=== PATIENT | male | born 1990 | race Caucasian/White ===

== ENCOUNTER 2021-09-03 08:13 | Emergency (ER) | payer BC, SELFPAY ==
--- NOTE | ~2021-09-03 | XR_ITS ---
EXAMINATION: XR chest 1V portable DATE: 09/03/2021 09:09 INDICATION: Palpitations. TECHNIQUE: A single frontal view of the chest was obtained. COMPARISON: None. FINDINGS: The chest demonstrates clear lungs without pneumonia, pleural effusion, or pneumothorax. Th e heart size is normal. IMPRESSION: 1. No acute cardiopulmonary disease. Reviewed, dictated and finalized at location B.
[2021-09-03 08:18] VITALS: BP 133/85; PULSE 80; RESP 16; TEMP 36.7; O2SAT 98
--- NOTE | 2021-09-03 09:01 | ECG_ITS ---
Measurements Intervals [place] Rate: 76 P: 33 ND: 150 QRS: -9 QRSD: 105 T: -19 QT: 343 QTc: 388 Interpretive Statements SINUS RHYTHM MINIMAL VOLTAGE CRITERIA FOR LVH, CONSIDER NORMAL VARIANT [MEETS CRITERIA IN ONE OF: R(aVL), S(V1), R(V5), R(V5/V6)+S(V1)] ST DEVIATION AND MODERATE T-WAVE ABNORMALITY, CONSIDER ANTERIOR ISCHEMIA [-0.1+ mV T WAVE IN V3/V4] ABNORMAL ECG NO PREVIOUS ECG AVAILABLE FOR COMPARISON Electronically Signed On 09-03-2021 17:58:52 CDT by Cody Seymour M.D.
--- NOTE | 2021-09-03 09:02 | ED.ANXIETY ---
HPI - Anxiety General Chief Complaint: Anxiety Stated Complaint: anxiety Time Seen by Provider: 09/03/21 09:00 Source: patient and family Mode of arrival: ambulatory Limitations: no limitations History of Present Illness HPI narrative: Patient is 31 years old white male came to the emergency room complaining of racing heart rate, racing mind over the last few months, got worse over the last 2 days. Patient also complaining of trouble sleeping for years. Every time he goes sleep, start thinking about his daily activity and make him unable to sleep. Patient denies any suicidal or homicidal ideation. Patient denies any obvious stress, fever, chills, nausea, vomiting, shortness of breath or chest pain. Patient does not smoke, drinks occasionally, denies any drug use. Patient is healthy otherwise, does not take medicine at home. Related Data Allergies Allergy/AdvReac Type Severity Reaction Status Date / Time adhesive tape AdvReac Hives Verified 09/03/21 08:22 Review of Systems Review of Systems: CONSTITUTIONAL: Denies fever, chills, or sweats. EYES: Denies visual changes, redness, or discharge. ENT: Denies rhinorrhea, congestion, sore throat, or otalgia. CARDIOVASCULAR: Denies chest pain, palpitations, or edema. RESPIRATORY: Denies cough or dyspnea. GASTROINTESTINAL: Denies abdominal pain, nausea, vomiting, or diarrhea. GENITOURINARY: Denies dysuria or hematuria. SKIN: Denies rash or itching. MUSCULOSKELETAL: Denies back pain, joint pain, or myalgia. NEUROLOGIC: Denies headache, numbness, or weakness. PSYCHIATRIC: Denies anxiety or depression. PMFSH Family History Family History Father Family history of malignant neoplasm Mother Family history of diabetes mellitus in first degree relative Social History Social History Smoking status: Never smoker Alcohol intake: current Exam Narrative: General appearance: Well-developed, well-nourished, restless, anxious Skin: Normal color Head: Normocephalic, nontraumatic Eyes: Clear conjunctiva ENT: Oropharynx normal, ears normal, nose normal Neck: Supple, nontender Chest and respiratory: Airway patent, no respiratory distress, no accessory muscle use Heart: Regular rate/rhythm Abdomen: Soft, nontender, no organomegaly, quiet bowel sounds Vascular: Normal peripheral pulses, normal capillary refill. Musculoskeletal: Normal range of motion, nontender back Neurologic: Alert and oriented ?3, CONSTRUCTION RECRUITER is normal as tested, no gross motor deficit Course Course Emergency Course: Anxiety-like symptoms is my concern. Reevaluation(s) Reevaluation #1: Patient feeling much better after 1 mg of Ativan orally. Date: 09/03/21 Time: 09:34 Vital Signs Vital signs: Vital Signs Temperature 36.7 C 09/03/21 08:18 Pulse Rate 80 09/03/21 08:18 Respiratory Rate 16 09/03/21 08:18 Blood Pressure 133/85 09/03/21 08:18 Pulse Oximetry 98 09/03/21 08:18 Temperature 36.7 C 09/03/21 08:18 Pulse Rate 84 09/03/21 10:29 Respiratory Rate 16 09/03/21 10:29 Blood Pressure 140/84 09/03/21 10:29 Pulse Oximetry 99 09/03/21 10:29 MDM - Anxiety Lab Data Result diagrams: 09/03/21 09:19 09/03/21 09:19 Labs: Lab Results 09/03/21 09/03/21 09/03/21 Range/Units 09:19 09:19 09:19 WBC 6.4 (4.5-10.0) K/mm3 RBC 5.21 (4.6-6.20) M/mm3 Hgb 15.7 (14.0-18.0) g/dL Hct 46.5 (42.0-52.0) % MCV 89.3 (80-100) fl MCH 30.1 (26-34) pg MCHC 33.8 (32-36) g/dl RDW 12.3 (11.5-14.5) % Plt Count 239 (150-375) k/mm3 MPV 11.1 H (7.4-10.4
[2021-09-03] MEDS: LORazepam (*CRX) 0.5 MG TABLET 1 MG PO (09:14)
[2021-09-03 09:31] LABS: Basophils Absolute Auto 0.1 K/mm3 (0.0-0.1); Basophils Percent Auto 0.9 % (0.2-1.2); Eosinophils Percent Auto 0.3 % (0-4.4); Hematocrit 46.5 % (42.0-52.0); Hemoglobin 15.7 g/dL (14.0-18.0); Immature Granulocyte Absolute 0.02 K/mm3 (0.00-0.031); Immature Granulocyte Percent A 0.3 % (0-0.5); Lymphocytes Absolute Auto 1.63 K/mm3 (0.9-3.2); Lymphocytes Percent Auto 25.3 % (18.3-44.2); Mean Corpuscular HGB Conc 33.8 g/dl (32-36); Mean Corpuscular Hemoglobin 30.1 pg (26-34); Mean Corpuscular Volume 89.3 fl (80-100); Mean Platelet Volume 11.1 fl (7.4-10.4); Monocytes Absolute Auto 0.6 K/mm3 (0.1-0.6); Monocytes Percent Auto 8.7 % (2.6-8.5); Neutrophils Absolute Auto 4.1 K/mm3 (1.3-6.7); Neutrophils Percent Auto 64.5 % (45.5-73.1); Platelet Count Result 239 k/mm3 (150-375); Red Blood Count 5.21 M/mm3 (4.6-6.20); Red Cell Distribution Width 12.3 % (11.5-14.5); White Blood Count 6.4 K/mm3 (4.5-10.0)
[2021-09-03 09:44] LABS: Alanine Aminotransferase 68 U/L (4-50); Albumin Level 4.5 g/dL (3.5-5.1); Alkaline Phosphatase 57 U/L (38-126); Anion Gap 10 mmol/L (8-16); Aspartate Amino Transferase 42 U/L (17-59); Bilirubin,Total 0.7 mg/dL (0.2-1.3); Blood Urea Nitrogen 12 mg/dL (9-20); Calcium 9.1 mg/dL (8.4-10.2); Carbon Dioxide 23 mmol/L (22-30); Chloride 105 mmol/L (98-107); Estimated CRCL calculation 181 ml/min; Estimated Glomerular Filt Rate > 60; Glucose 104 mg/dL (65-110); Potassium 3.9 mmol/L (3.4-5.0); Sodium 138 mmol/L (137-145)
[2021-09-03 09:53] LABS: Troponin I < 0.012 ng/mL (0.000-0.034)
[2021-09-03 10:29] VITALS: BP 140/84; PULSE 84; RESP 16; O2SAT 99
[2021-09-03 11:20] VITALS: BP 132/74; PULSE 84; RESP 16; O2SAT 98
== END 2021-09-03 11:53 | disposition home or self-care (01) ==
PROVIDERS: Emergency Provider Emergency Medicine; PCP Hospitalist
DX: F41.0 Panic disorder [episodic paroxysmal anxiety] (principal); F51.02 Adjustment insomnia; R94.31 Abnormal electrocardiogram [ECG] [EKG]
CPT/HCPCS: 36415; 71045; 80053; 84443; 84484; 85025; 93005; 99284; A9270

== ENCOUNTER 2022-09-01 08:11 | Outpatient (CLI) | payer BC, SELFPAY ==
--- NOTE | 2022-09-17 11:16 | WPDSLEEPSTUD ---
Sleep Study Date of Study: 09/01/22 Ordering Provider: Sera Albrecht, CASH SHORTAGE INVESTIGATOR- Interpreting Physician: Gita Velez MD Sleep Study Type: CPAP Titration Height: 1.91 m Weight: 122.47 kg Body Mass Index: 33.7 Neck Circumference (inches): 16.5 [place]: 1 Reason for Sleep Study Difficulty falling asleep and staying asleep, decreased oxygen level during hospitalization for neck surgery * 06/25/2022 basic nocturnal polysomnogram at [facility] showing apnea-hypopnea index 21, higher during supine sleep 34, sleep efficiency 92% minimum desaturation 87%; he had limited supine sleep on this study indicating that the AHI may have underestimated the degree of sleep disordered breathing. Sleep History Juan Beckford is a 32-year-old male who has a history of difficulty getting to sleep and staying asleep. During a hospital admission for neck surgery, he had low oxygen levels at night improved with supplemental oxygen. he was thought to have a Chiari malformation however after is neck procedure neurosurgery, decided he did not have this condition. He has been prescribed sleep aids a few times to help him get to sleep. This is been going on longer than 2 years. He has problems waking up throughout the night and he has excessive daytime sleepiness. He occasionally awakens from sleep feeling short of breath. He never awakens at night with heartburn, belching or coughing. He occasionally snores and occasionally is loud enough that others complain about it. He always has difficulty sleeping if he has a cold. He occasionally wakes up gasping for breath at night, occasionally has breathing problems at night observed by others, occasionally sweats excessively at night and occasionally notices his heart pounding or beating irregularly at night. He does not fall asleep during the day, does not fall asleep involuntarily or while driving. He does not have loss of muscle tone with strong emotion. He occasionally has daytime difficulties due to excessive sleepiness. He does not feel paralyzed on waking or falling asleep. He occasionally has vivid dreamlike scenes upon awakening or falling asleep. He occasionally feels afraid to go to sleep. He occasionally has nightmares. He occasionally remembers his dreams. He always has racing thoughts. He occasionally feels sad, depressed, or anxious. He always has muscular tension. He occasionally notices parts of his body jerking. He occasionally kicks at night. He does not have crawling and aching feelings in his legs or any kind of leg pain during the night. He does not have morning jaw pain or grind his teeth during sleep. He occasionally is bothered by pain during the day. He rarely is awakened by pain at night he occasionally wakes up feeling stiff in the morning with sore achy muscles and pain in the neck and spine. He has headaches, panic, fatigue and insomnia. Normal bedtime is between 9:00 p.m. and 10:00 p.m., taking 1-2 hours to fall asleep, waking up anywhere between 1 and 4 times during the night to urinate, get a snack and return to sleep. Sometimes he is able to return to sleep within 15 minutes and at other times it may take an hour to return to sleep. His normal wake time is 6:30 a.m.. On weekends bedtime is between 10:00 p.m. and 12 midnight and he wakes at 7:00 a.m.. He estimates getting 5-7 hours of sleep at night. He does not generally take naps in the afternoon or evening. He often feels refreshed after a short 10 or 15 minute nap. He is drowsy for 2 hours after waking. He feels better in the afternoon compared to other times of day. He reports a 20 lb weight gain in the last year. Habits: Never smoked. Caffeine 2 or more servings a day. Alcohol socially, not regularly. No recreational substances. [facility] Past Medical History Medical History (Updated 09/17/22 @ 11:44 by Gita Velez MD) Anxiety Chronic sinusitis Obstructive sleep apnea Primary inso
[2022-09-17 11:47] VITALS: BMI 33.7
--- NOTE | 2023-05-26 13:13 | SLEEP ---
pt stopped usage of machine
== END 2022-09-02 06:13 | disposition home or self-care (01) ==
LOC: ANHCSM 08:12
PROVIDERS: PCP Hospitalist; Visit Provider Nurse Practitioner Family
DX: G47.33 Obstructive sleep apnea (adult) (pediatric) (principal)
CPT/HCPCS: 95811

== ENCOUNTER 2024-02-18 12:52 | Outpatient (CLI) | payer BC, SELFPAY ==
--- NOTE | 2024-03-09 18:41 | WPDSLEEPSTUD ---
Sleep Study Date of Study: 02/18/24 Ordering Provider: Gita Velez MD Interpreting Physician: Gita Velez MD Sleep Study Type: Split Polysomnogram Height: 1.91 m Weight: 129.274 kg Body Mass Index: 35.6 Neck Circumference (inches): 17 [place]: 12 Reason for Sleep Study Known obstructive sleep apnea, not thriving on CPAP 17 cm, now here for split night study. * 06/25/2022 basic nocturnal polysomnogram at [facility] showing apnea-hypopnea index 21, higher during supine sleep 34, sleep efficiency 92% minimum desaturation 87%; he had limited supine sleep on this study indicating that the AHI may have underestimated the degree of sleep disordered breathing. * 09/01/2022, CPAP titration with an optimal pressure of CPAP 17 cm. Sleep History Juan Beckford is a 34-year-old male with known obstructive sleep apnea, tested in August 2022, has not been able to tolerate CPAP 17 cm. He has difficulty getting to sleep and staying asleep. During a hospital admission for neck surgery, he had low oxygen levels at night improved with supplemental oxygen. He was thought to have a Chiari malformation however after is neck procedure, neurosurgery decided he did not have this condition. He has been prescribed sleep aids a few times to help him get to sleep. His problems with sleep have been present several years. He has problems waking up throughout the night and he has excessive daytime sleepiness. He occasionally awakens from sleep feeling short of breath. He never awakens at night with heartburn, belching or coughing however since using CPAP 17 cm, he has had belching the day after using CPAP. He occasionally snores and occasionally is loud enough that others complain about it. He always has difficulty sleeping if he has a cold. He occasionally wakes up gasping for breath at night, occasionally has breathing problems at night observed by others, occasionally sweats excessively at night and occasionally notices his heart pounding or beating irregularly at night. He does not fall asleep during the day, does not fall asleep involuntarily or while driving. He does not have loss of muscle tone with strong emotion. He occasionally has daytime difficulties due to excessive sleepiness. He does not feel paralyzed on waking or falling asleep. He occasionally has vivid dreamlike scenes upon awakening or falling asleep. He occasionally feels afraid to go to sleep. He occasionally has nightmares. He occasionally remembers his dreams. He always has racing thoughts. He occasionally feels sad, depressed, or anxious. He always has muscular tension. He occasionally notices parts of his body jerking. He occasionally kicks at night. He does not have crawling and aching feelings in his legs or any kind of leg pain during the night. He does not have morning jaw pain or grind his teeth during sleep. He occasionally is bothered by pain during the day. He rarely is awakened by pain at night he occasionally wakes up feeling stiff in the morning with sore achy muscles and pain in the neck and spine. He has headaches, panic, fatigue and insomnia. Normal bedtime is between 9:00 p.m. and 10:00 p.m., taking 1-2 hours to fall asleep, waking up anywhere between 1 and 4 times during the night to urinate, get a snack and return to sleep. Sometimes he is able to return to sleep within 15 minutes and at other times it may take an hour to return to sleep. His normal wake time is 6:30 a.m.. On weekends bedtime is between 10:00 p.m. and 12 midnight and he wakes at 7:00 a.m.. He estimates getting 5-7 hours of sleep at night. He does not generally take naps in the afternoon or evening. He often feels refreshed after a short 10 or 15 minute nap. He is drowsy for 2 hours after waking. He feels better in the afternoon compared to other times of day. He reports a 20 lb weight gain in the last year. Habits: Never smoked. Caffeine 2 or more servings a day.
[2024-03-09 18:46] VITALS: BMI 35.6
== END 2024-02-19 07:28 | disposition home or self-care (01) ==
LOC: ANHCSM 12:54
PROVIDERS: PCP Nurse Practitioner Family; Visit Provider Internal Medicine Critical Care Medicine
DX: G47.33 Obstructive sleep apnea (adult) (pediatric) (principal); Z68.35 Body mass index [BMI] 35.0-35.9, adult
CPT/HCPCS: 95811

== ENCOUNTER 2024-04-18 11:50 | Emergency (ER) | payer BC, SELFPAY ==
[2024-04-18 11:55] VITALS: BP 152/84; PULSE 84; RESP 16; TEMP 36.9; O2SAT 99
--- NOTE | 2024-04-18 12:43 | ED.GENADULT ---
HPI - General Adult General Chief complaint: Ear Stated complaint: can't hear out of left ear Time Seen by Provider: 04/18/24 11:52 Source: patient Mode of arrival: ambulatory Limitations: no limitations History of Present Illness HPI narrative: Pt presents for evaluation of left sided tinnitus and muffled hearing. Symptom onset yesterday after he had an x ray of his head. He indicates approximately 2 years ago he had an incidental finding of a schwannoma when he went in for an MRI of his C-spine. Neuro surgery took him to the operating room and essentially did not remove the tumor as it was on his facial nerve. Neurosurgery was concerned that excision of the mass could result in facial paralysis, as it was sitting on is facial nerve. He subsequently had a GROUNDS WORKER shunt placed. He has had serial MRIs to monitor the size of the tumor. On a previous MRI, there was concern that there may be a metal fragment in his skull from his previous surgery. Prior to having a repeat MRI of his brain, it was recommended that he have an x-ray to ensure that he did not have a retained metallic fragment. States his symptoms of tinnitus and hearing loss started fairly abruptly yesterday. He denies any fever, chills, sinus congestion, drainage, otalgia, drainage from the ear or respiratory symptoms. He does not smoke or vape. He contacted his neurosurgeon's office and was advised to go to an urgent care to ensure he did not have a cerumen impaction. He has a telemedicine appointment with Neurosurgery today at 2:25 p.m. Related Data Allergies Allergy/AdvReac Type Severity Reaction Status Date / Time adhesive tape AdvReac Hives Verified 04/18/24 12:06 Review of Systems Review of Systems: CONSTITUTIONAL: Denies fever, chills, or sweats. EYES: Denies visual changes, redness, or discharge. ENT: Reports left-sided tinnitus and hearing loss. Denies drainage from the ear. Denies rhinorrhea, congestion, sore throat, or otalgia. CARDIOVASCULAR: Denies chest pain, palpitations, or edema. RESPIRATORY: Denies cough or dyspnea. GASTROINTESTINAL: Denies abdominal pain, nausea, vomiting, or diarrhea. GENITOURINARY: Denies dysuria or hematuria. SKIN: Denies rash or itching. MUSCULOSKELETAL: Denies back pain, joint pain, or myalgia. NEUROLOGIC: Denies headache, numbness, dizziness, or weakness. PSYCHIATRIC: Denies anxiety or depression. [facility] Past Medical History Medical History Anxiety Chronic hiccups Chronic sinusitis Migraine Neck pain Nocturia Obese Obstructive sleep apnea Primary insomnia Schwannoma Surgical History Surgical History History of appendectomy History of neck surgery 05/26/2022 Family History Family History Father Family history of malignant neoplasm Mother Family history of diabetes mellitus in first degree relative Grandparent Diabetes mellitus Social History Social History Social History: Pt is very confident in filling out medical forms. Pt has not received assistance in the last 12 months. Smoking packs per day: 0 Smoking cigarettes per day: 0.0 Years smoked: 0 Smoking pack-years: 0.00 Smoking status: Never smoker Alcohol intake: current Drinks per week: 3 Alcohol use details: socially Substance use: never Substance use type: does not use Do You Feel Safe in your Home?: Yes Lack of Transportation: No Lack of Food: Never True Current Housing: I Have Housing Concerned About Future Housing: No Difficulty Paying Gas/Electric Bills: No Difficulty Paying for Meds: No Currently Unemployed: No Education: High School Diploma/GED Difficulty w/ Childcare or Family Care: No Living arrangements: with family Occupation/Education: occupation Gender identity (if verbalized by the patient): Male Sexual Orientation (if Verbalized by the Patient): Straight or Heterosexual Agree to blood products: Yes Exam Narrative: GENERAL: Well-appearing, well-nourished, and in no acute distress. HEAD: Normocephalic, atraumatic. EYES: PERRLA and EOMI. ENT: Nares clear, no rhinorrhea or epistaxis. Mucous membranes moist. Oropharynx without tonsillar hypertrophy exudate or other lesions. There is bilateral middle ear fluid. Left TM is slightly bulging and erythematous NECK: Supple. No adenopathy or masses. No carotid bruits or JVD CHEST: Clear to auscultation. No respiratory distress. No wheezes rales or rhonchi HEART: Regular rate and rhythm. No murmur heard. Normal peripheral pulses. ABDOMEN: Soft, nontender, nondistended, normal active bowel sounds. EXTREMITIES: Normal range of motion. No edema. SKIN: Warm, dry, no rash. NEURO: No focal deficits. Alert and oriented x3. PSYCH: Normal mood and affect. Course Course Emergency Course: This is a 34-year-old male who presented for evaluation of hearing loss and tinnitus in the left ear. Does have some middle ear fluid in left TM is slightly bulging. Will treat with Augmentin. I do think that further investigation by Neurosurgery would be beneficial as I am not sure that middle ear fluid would cause abrupt onset hearing loss. He has an appointment with them today, which he was advised to keep. May be beneficial for him to have an in person physical exam by Neurosurgery. I recommended that he speak with them about that during his appointment today. In the event that he has worsening symptoms he should go to the emergency department. Patient in agreement with plan of care. Level of Care: Express Care Visit Vital Signs Vital signs: Vital Signs Temperature 36.9 C 04/18/24 11:55 Pulse Rate 84 04/18/24 11:55 Respiratory Rate 16 04/18/24 11:55 Blood Pressure 152/84 H 04/18/24 11:55 Pulse Oximetry 99 04/18/24 11:55 Oxygen Delivery Room Air 04/18/24 11:55 Temperature 36.9 C 04/18/24 11:55 Pulse Rate 84 04/18/24 11:55 Respiratory Rate 16 04/18/24 11:55 Blood Pressure 152/84 H 04/18/24 11:55 Pulse Oximetry 99 04/18/24 11:55 Oxygen Delivery Room Air 04/18/24 11:55 Medical Decision Making Vital Signs Vital Signs: Vital Signs Temperature 36.9 C 04/18/24 11:55 Pulse Rate 84 04/18/24 11:55 Respiratory Rate 16 04/18/24 11:55 Blood Pressure 152/84 H 04/18/24 11:55 Pulse Oximetry 99 04/18/24 11:55 Oxygen Delivery Room Air 04/18/24 11:55 Temperature 36.9 C 04/18/24 11:55 Pulse Rate 84 04/18/24 11:55 Respiratory Rate 16 04/18/24 11:55 Blood Pressure 152/84 H 04/18/24 11:55 Pulse Oximetry 99 04/18/24 11:55 Oxygen Delivery Room Air 04/18/24 11:55 Discharge Plan Discharge Clinical Impression: Hearing loss, Tinnitus, Fluid collection of middle ear Patient Disposition: Home, Self-Care Condition: Stable Instructions: Antibiotic Form, Hearing Loss (ED), Tinnitus (ED) Additional Instructions: ASK YOUR NEUROSURGERY TEAM TODAY WHETHER SUDAFED AND FLONASE MAY HELP I RECOMMEND YOU KEEP APPOINTMENT WITH NEUROSURGERY TODAY AND TO DISCUSS WHETHER AN IN-OFFICE APPOINTMENT IS RECOMMENDED Patient Language: Portuguese Prescriptions: New amoxicillin-pot clavulanate 875-125 mg tablet 1 tablet PO Q12H Qty: 20 0RF No Action doxepin 25 mg capsule 25 mg PO QHS 30 Days Qty: 30 5RF hydroxyzine HCl 25 mg tablet 25 mg PO DAILY PRN (Reason: anxiety/insomnia) Qty: 90 1RF pantoprazole 40 mg tablet,delayed release (DR/EC) 40 mg PO QAM 30 Days Qty: 90 1RF Rx Instructions: Take one tablet by mouth every morning 30 minutes before first meal doxepin 10 mg capsule 10 mg PO QHS Qty: 30 0RF Follow-up/Referrals: Sera Albrecht APRN [Primary Care Provider] - Time of Disposition: 12:40
== END 2024-04-18 12:46 | disposition home or self-care (01) ==
PROVIDERS: Emergency Provider Nurse Practitioner; PCP Nurse Practitioner Family
DX: H91.92 Unspecified hearing loss, left ear (principal); H93.12 Tinnitus, left ear; H74.8X2 Other specified disorders of left middle ear and mastoid; E66.9 Obesity, unspecified; Z68.35 Body mass index [BMI] 35.0-35.9, adult; D33.3 Benign neoplasm of cranial nerves; Z98.2 Presence of cerebrospinal fluid drainage device
CPT/HCPCS: 99213; G0463